=== PATIENT | female | born 1995 | race Two or more races ===

== ENCOUNTER 2020-07-19 17:48 | Inpatient (IN) | payer MEDICAID, SELFPAY ==
[~2020-07-19] VITALS: Ht 167.6 cm; Wt 111.1 kg
[2020-07-19] MEDS ORDERED: MORPHINE SULFATE 5 MG/ML VIAL IVP PRN (17:55)
[2020-07-19] MEDS ORDERED: METHYLERGONOVINE 0.2 MG/ML AMP IM PRN (17:55)
[2020-07-19] MEDS ORDERED: AMPICILLIN 2,000 MG in NACL 0.9% MINI-BAG PLUS 100 ML IV SCH (17:55)
[2020-07-19] MEDS ORDERED: LACTATED RINGERS 500 ML IV SCH (17:55)
[2020-07-19] MEDS ORDERED: OXYTOCIN 20 UNITS in LACTATED RINGERS 1,000 ML IV SCH (17:55)
[2020-07-19] MEDS ORDERED: CARBOPROST 250 MCG/ML AMP IM PRN (17:55)
[2020-07-19] MEDS ORDERED: MORPHINE SULFATE 10 MG/ML VIAL ONE (18:12)
[2020-07-19 18:28] VITALS: BP 99/57
[2020-07-19 18:41] LABS: BASOPHILS # (AUTO) 0.2 K/uL (0.00-0.22); BASOPHILS % (AUTO) 1.2 % (0.0-2.0); EOSINOPHILS % (AUTO) 0.2 % (0.0-4.0); HEMOGLOBIN 11.3 g/dL (12.0-16.0); LYMPHOCYTES # (AUTO) 0.3 K/uL (2.5-16.5); LYMPHOCYTES % (AUTO) 2.4 % (20.5-51.1); MEAN CORPUSCULAR HEMOGLOBIN 32 pg (27-31); MEAN CORPUSCULAR HGB CONC 33 g/dL (33-37); MEAN CORPUSCULAR VOLUME 95.8 fL (80-94); MONOCYTES % (AUTO) 7.8 % (1.7-9.3); NEUTROPHILS # (AUTO) 11.3 K/uL (1.8-7.7); NEUTROPHILS % (AUTO) 88.4 % (42.2-75.2); PLATELET COUNT (AUTO) 253 K/uL (140-450); RED BLOOD CELL COUNT(AUTO) 3.55 MIL/uL (4.20-5.40); RED CELL DISTRIBUTION WIDTH 13.4 % (11.6-13.7); WHITE BLOOD COUNT (AUTO) 12.7 K/uL (4.8-10.8)
[2020-07-19 18:52] LABS: APPEARANCE,URINE CLOUDY (CLEAR); BILIRUBIN,URINE 2+ (NEGATIVE); BLOOD, URINE 3+ (NEGATIVE); COLOR,URINE ORANGE (YELLOW); LEUKOCYTE ESTERASE ,URINE 2+ (NEGATIVE); NITRITE, URINE POSITIVE (NEGATIVE); UGLUCOSE NEGATIVE (NEGATIVE)
[2020-07-19 18:56] LABS: ALBUMIN 2.5 g/dL (3.4-5.0); ANION GAP 18.4 (8-16); CARBON DIOXIDE 19.2 mmol/L (21-32); POTASSIUM 3.6 mmol/L (3.5-5.1); TOTAL BILIRUBIN 1.5 mg/dL (0.0-1.0)
[2020-07-19] MEDS ORDERED: ROPIVACAINE 0.2%/NS PREMIX 200 ML EPI ONE (19:17)
[2020-07-19 19:20] LABS: WBC,URINE 16-25 (MOD) /HPF (0-5)
[2020-07-19] MEDS: LACTATED RINGERS 1,000 ML IV SCH ×2 (19:37→20:43)
[2020-07-19] MEDS ORDERED: OXYTOCIN 20 UNITS/LR PREMIX 1,000 ML IV ONE (22:00)
[2020-07-19] MEDS ORDERED: AMPICILLIN 1,000 MG VIAL ONE (22:00)
[2020-07-19] MEDS ORDERED: AMPICILLIN 1,000 MG in NACL 0.9% MINI-BAG PLUS 50 ML IV SCH (22:00)
[2020-07-20] MEDS: LACTATED RINGERS 1,000 ML IV SCH (01:07)
[2020-07-20] MEDS ORDERED: IBUPROFEN 600 MG TAB PO PRN (02:35)
[2020-07-20] MEDS ORDERED: OXYTOCIN 10 UNITS/ML VIAL IM PRN (02:35)
[2020-07-20] MEDS ORDERED: SIMETHICONE 80 MG TAB.CHEW PO PRN (02:35)
[2020-07-20] MEDS ORDERED: BENZOCAINE/MENTHOL 20%-0.5% 60 GM CAN TP PRN (02:35)
[2020-07-20] MEDS ORDERED: DOCUSATE SODIUM 100 MG GELCAP PO PRN (02:35)
[2020-07-20] MEDS ORDERED: METHYLERGONOVINE 0.2 MG TAB PO PRN (02:35)
[2020-07-20] MEDS ORDERED: MEASLES, MUMPS, AND RUBELLA 1 VIAL SQVAC PRN (02:35)
[2020-07-20] MEDS ORDERED: METHYLERGONOVINE 0.2 MG/ML AMP IM PRN (02:35)
[2020-07-20] MEDS ORDERED: oxyCODONE/APAP 5/325 MG 1 TAB TAB PO PRN (02:35)
[2020-07-20] MEDS ORDERED: bisacodyL 5 MG TABEC PO PRN (02:35)
--- NOTE | 2020-07-20 08:17 | NUR ---
PATIENT HAS BEEN SCREENED AND CATEGORIZED LOW NUTRITION RISK. PATIENT WILL BE SEEN WITHIN 7 DAYS OF ADMISSION. 07/26/20 LEONIE RAMOS MBA, RD
[2020-07-21] MEDS: IBUPROFEN 800 MG TAB PO PRN ×2 (04:08→21:15)
[2020-07-21 08:31] LABS: HEMATOCRIT 28.7 % (36-48); HEMOGLOBIN 9.7 g/dL (12.0-16.0)
== END 2020-07-22 16:45 | disposition home or self-care (01) | DRG 560 ==
LOC: MLD 17:48 → MFCC 07-20 05:43
PROVIDERS: ADMIT Obstetrics & Gynecology; ATTEND Obstetrics & Gynecology
PROC: 00HU33Z Insertion of Infusion Device into Spinal Canal, Percutaneous Approach (ICD-10-PCS; 2020-07-19)
PROC: 3E0R3BZ Introduction of Anesthetic Agent into Spinal Canal, Percutaneous Approach (ICD-10-PCS; 2020-07-19)
PROC: 10E0XZZ Delivery of Products of Conception, External Approach (ICD-10-PCS; principal; 2020-07-20)
PROC: 0HQ9XZZ Repair Perineum Skin, External Approach (ICD-10-PCS; 2020-07-20)
PROC: 3E0134Z Introduction of Serum, Toxoid and Vaccine into Subcutaneous Tissue, Percutaneous Approach (ICD-10-PCS; 2020-07-20)
PROC: 3E0234Z Introduction of Serum, Toxoid and Vaccine into Muscle, Percutaneous Approach (ICD-10-PCS; 2020-07-21)
DX: O99.214 Obesity complicating childbirth (principal); E66.9 Obesity, unspecified; O99.824 Streptococcus B carrier state complicating childbirth; O77.0 Labor and delivery complicated by meconium in amniotic fluid; O70.0 First degree perineal laceration during delivery; O86.20 Urinary tract infection following delivery, unspecified; Z3A.39 39 weeks gestation of pregnancy; Z20.822 Contact with and (suspected) exposure to COVID-19; Z23 Encounter for immunization; Z37.0 Single live birth; Z87.440 Personal history of urinary (tract) infections
CPT/HCPCS: 36415; 80053; 81001; 85018; 85025; 86592; 86886; 86900; 86901; 87086; 90715; J0290; J0696; J2270; J2590; J2795; J7060; J7120